=== PATIENT | female | born 1990 | race Caucasian/White ===

== ENCOUNTER → 2022-01-17 | Outpatient (CLI) | payer BC, SELFPAY ==
[2022-01-17 16:02] LABS: Absolute Lymphocyte Count 2.05 X10^3/uL (0.83-4.51); Basophil# 0.03 X10^3/uL; Basophil% 0.2 % (0-1); Eosinophil# 0.08 X10^3/uL; Eosinophils% 0.6 % (0-5); Hematocrit 38.1 % (37-47); Hemoglobin 12.4 g/dL (12.0-15.0); Lymphocyte # 2.05 X10^3/ul (0.83-4.51); Lymphocyte % 14.7 % (19-41); Mean Corp Hgb Conc 32.5 g/dL (32-36); Mean Corpuscular Hgb 29.7 pg (27.0-32.0); Mean Corpuscular Volume 91.1 fL (81-99); Mean Platelet Vol. 10.6 fl (6.2-12.0); Monocyte# 0.66 X10^3/uL; Monocyte% 4.7 % (0-10); NRBC Flagged by Analyzer 0 % (0-5); Neutrophil % 79.2 % (47-70); Platelet Count 271 K/mm3 (150-450); RBC Distribution Width CV 12.9 % (11.6-14.6); RBC Distribution Width SD 42.7 fl (35.1-43.9); Red Blood Count 4.18 M/mm3 (4.2-5.4); White Blood Count 13.9 K/mm3 (4.4-11.0)
[2022-01-18 08:25] LABS: HIV - WCH Non-Reactive (Nonreactive); Hepatitis B Surface Antigen Non-Reactive (Nonreactive); Hepatitis C Antibody Non-Reactive (Nonreactive); Rubella IgG Reactive (Nonreactive); Syphilis Antibodies Non-reactive
== END | disposition home or self-care (01) ==
PROVIDERS: Referring Provider Registered Nurse; Visit Provider Registered Nurse
DX: Z34.90 Encounter for supervision of normal pregnancy, unspecified, unspecified trimester (principal)
CPT/HCPCS: 36415; 85025; 86703; 86762; 86780; 86803; 86850; 86900; 86901; 87340

== ENCOUNTER → 2022-01-23 | Outpatient (CLI) | payer BC, SELFPAY ==
--- NOTE | 2022-01-23 12:25 | US_ITS ---
EXAM: US SECOND OR THIRD TRIMESTER , TRANSABDOMINAL; US OB TRANSVAGINAL CLINICAL INDICATION: anatomy TECHNIQUE: Transabdominal obstetrical ultrasound of the maternal pelvis and a second or third trimester with image documentation. Transvaginal images were also performed for optimal visualization of the cervix. This report was created using [employer] report generation technology. COMPARISON: None. FINDINGS: FETUS: Single live intrauterine . HEART RATE: heart rate: 141 bpm. PRESENTATION: Breech position. PLACENTA: The placenta is anterior without previa or other significant abnormality. Placental lakes are incidentally noted. AMNIOTIC FLUID: Unremarkable, within normal limits for the gestational age . ANATOMY: Unremarkable sonographic appearance of the intracranial, facial anatomy, spinal anatomy, 4 chamber heart, diaphragm, stomach, kidneys, bladder, three-vessel cord, cord insertion, extremities. BIOMETRICS GESTATIONAL AGE: Gestational age by ultrasound: 21 weeks 4 days, ABELINO 06/01/2022. Gestational age by on peak colon 22 weeks 2 days, ABELINO 05/27/2022. EFW: Estimated weight: 435 g, 23rd percentile. BPD: 5.23 cm, 21 weeks 6 days. HC: 19.29 cm, 21 weeks 4 days. AC: 16.88 cm, 21 weeks 6 days. FL: 3.68 cm, 21 weeks 5 days. MATERNAL: UTERUS: Unremarkable. No myometrial mass. CERVIX: Normal appearance, 5.2 cm in length. ADNEXA: Not well visualized due to the gravid uterus. FREE FLUID: None. IMPRESSION: Single live intrauterine measuring 21 weeks 4 days, with no significant abnormality. Unremarkable anatomic survey. Electronically Signed: Henri Ibarra MD at 23:18 EDT , EXAM: US SECOND OR THIRD TRIMESTER , TRANSABDOMINAL; US OB TRANSVAGINAL CLINICAL INDICATION: anatomy TECHNIQUE: Transabdominal obstetrical ultrasound of the maternal pelvis and a second or third trimester with image documentation. Transvaginal images were also performed for optimal visualization of the cervix. This report was created using [employer] report generation technology. COMPARISON: None. FINDINGS: FETUS: Single live intrauterine . HEART RATE: heart rate: 141 bpm. PRESENTATION: Breech position. PLACENTA: The placenta is anterior without previa or other significant abnormality. Placental lakes are incidentally noted. AMNIOTIC FLUID: Unremarkable, within normal limits for the gestational age . ANATOMY: Unremarkable sonographic appearance of the intracranial, facial anatomy, spinal anatomy, 4 chamber heart, diaphragm, stomach, kidneys, bladder, three-vessel cord, cord insertion, extremities. BIOMETRICS GESTATIONAL AGE: Gestational age by ultrasound: 21 weeks 4 days, ABELINO 06/01/2022. Gestational age by on peak colon 22 weeks 2 days, ABELINO 05/27/2022. EFW: Estimated weight: 435 g, 23rd percentile. BPD: 5.23 cm, 21 weeks 6 days. HC: 19.29 cm, 21 weeks 4 days. AC: 16.88 cm, 21 weeks 6 days. FL: 3.68 cm, 21 weeks 5 days. MATERNAL: UTERUS: Unremarkable. No myometrial mass. CERVIX: Normal appearance, 5.2 cm in length. ADNEXA: Not well visualized due to the gravid uterus. FREE FLUID: None. US/OB Anatomy Scan
== END | disposition home or self-care (01) ==
LOC: OPUS 12:23
PROVIDERS: Visit Provider Registered Nurse
DX: Z34.92 Encounter for supervision of normal pregnancy, unspecified, second trimester (principal); Z3A.21 21 weeks gestation of pregnancy
CPT/HCPCS: 76805; 76817